=== PATIENT | female | born 2000 | race Hispanic/Latino ===

== ENCOUNTER 2020-07-18 12:46 | Emergency (ER) | payer OTHER ==
[~2020-07-18] VITALS: Ht 152.4 cm; Wt 48.2 kg
[2020-07-18] MEDS ORDERED: IBUP-1022 PO (12:52)
[2020-07-18 14:03] LABS: BASO % 0.2 % (0.0-1.0); EOS % 0.3 % (0.0-3.0); HEMATOCRIT 43.3 % (36.0-47.0); HEMOGLOBIN 13.9 g/dl (12.0-15.5); LYMPH % 7.2 % (24.0-44.0); MEAN CORPUSCULAR HEMOGLOBIN 28.8 pg (27.0-33.0); MEAN CORPUSCULAR HGB CONC 32.1 g/dl (32.0-36.5); MEAN CORPUSCULAR VOLUME 89.6 fl (80.0-96.0); MONO % 7.3 % (2.0-8.0); NEUTROPHILS # 11.7 10^3/uL (1.5-8.5); NEUTROPHILS % 84.6 % (36.0-66.0); PLATELET COUNT, AUTOMATED 236 10^3/uL (150-450); RED BLOOD COUNT 4.83 10^6/uL (4.00-5.40); WHITE BLOOD COUNT 13.8 10^3/uL (4.0-10.0)
[2020-07-18 14:29] LABS: ALBUMIN 4.1 GM/DL (3.2-5.2); BILIRUBIN,DIRECT 0.2 MG/DL (0.0-0.2); BILIRUBIN,TOTAL 0.8 MG/DL (0.2-1.0)
--- NOTE | 2020-07-18 15:11 | REP ---
INDICATION: right flank pain; r/o pyelo. COMPARISON: None. TECHNIQUE: Real-time sonographic evaluation of the kidneys is performed. FINDINGS: Renal cortical echogenicity pattern is normal bilaterally and contours are smooth. There is severe right hydronephrosis localized to the upper half of the right kidney. The lower pole pelvocaliceal system does not appear to be dilated. There is no hydronephrosis of the left kidney. There is diffuse severe right hydroureter. No renal mass is seen bilaterally. The right kidney measures 10.4 x 4.3 x 3.7 cm. Left renal dimensions are 10.0 x 4.5 x 5.1 cm. The urinary bladder is unremarkable. Ureteral jets are seen in the urinary bladder bilaterally with Doppler color evaluation. IMPRESSION: Severe hydronephrosis of the upper right kidney. 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 The dilated ureter can be followed all the way to the bladder with no evidence of internal calculus. <Electronically signed by Biju Apodaca > 07/18/20 [id number]
[2020-07-18] MEDS ORDERED: CIPR500T39 PO (16:14)
[2020-07-18] MEDS ORDERED: CIPROFLOXACIN 500MG TABLET PO ONE (16:20)
[2020-07-18 16:22] VITALS: BP 110/63
== END 2020-07-18 16:49 | disposition home or self-care (01) ==
LOC: M ED 12:46
DX: N10 Acute pyelonephritis (principal); N13.39 Other hydronephrosis; R81 Glycosuria; Z79.899 Other long term (current) drug therapy